=== PATIENT | female | born 1990 | race Caucasian/White ===

== ENCOUNTER → 2020-11-07 14:52 | Observation (INO) | END | disposition home or self-care (01) | LOC: 1NENULAB | PROVIDERS: ADMIT Registered Nurse; ATTEND Registered Nurse ==

== ENCOUNTER 2021-02-14 05:45 | Inpatient (IN) ==
[2021-02-14] MEDS ORDERED: Famotidine 20 MG/2 ML VIAL IVP PRN (05:59)
[2021-02-14] MEDS ORDERED: Naloxone 0.4 MG/ML INJ IVP PRN (05:59)
[2021-02-14] MEDS ORDERED: Metoclopramide 10 MG/2 ML VIAL IVP PRN ×2 (05:59→12:04)
[2021-02-14] MEDS ORDERED: Ringers Solution, Lactated 1,000 ML IVC SCH (06:00)
[2021-02-14 06:36] LABS: Basophils % 0.2 %; Eosinophils # 0.2 K/mcL (0.0-0.6); Eosinophils % 1.6 %; Hematocrit 36.2 % (35.3-44.9); Hemoglobin 11.3 g/dL (11.5-15.4); Immature Granulocytes % 1.4 % (0-4); Lymphocytes % 21.5 %; Mean Corpuscular HGB Conc 31.2 g/dL (31.6-35.5); Mean Corpuscular Hemoglobin 25.3 pg (28.0-33.3); Mean Corpuscular Volume 81.2 fL (83.0-100.0); Mean Platelet Volume 10.2 fL (9.4-12.4); Monocytes # 0.9 K/mcL (0.0-1.3); Monocytes % 9.2 %; Neutrophils # 6.3 K/mcL (1.6-8.9); Platelet Count 194 K/mcL (140-400); Red Blood Count 4.46 M/mcL (3.82-4.97); Red Cell Distribution Width 17.4 % (11.5-14.5); Segmented Neutrophils % 66.1 %; White Blood Count 9.5 K/mcL (4.3-11.1)
[2021-02-14] MEDS ORDERED: CeFAZolin 2,000MG/50ML DUPLEX 2,000 MG/50 ML BAG IVPB ONE (07:00)
[2021-02-14] MEDS ORDERED: EPHEDrine 50 MG/ML VIAL ONE (07:12)
[2021-02-14] MEDS ORDERED: *HR* Morphine Sulfate/PF 10 MG/10 ML AMPUL ONE (07:12)
[2021-02-14] MEDS ORDERED: *HR* FentaNYL (PF) 100 MCG/2 ML VIAL ONE (07:12)
[2021-02-14] MEDS ORDERED: *HR* Phenylephrine 10 MG/ML VIAL ONE (07:13)
[2021-02-14] MEDS ORDERED: Acetaminophen IV 1,000 MG/100 ML BAG IVPB ONE (07:13)
[2021-02-14] MEDS ORDERED: Ondansetron 4 MG/2 ML VIAL ONE (07:13)
[2021-02-14] MEDS ORDERED: Oxytocin 20 units/ LR 1000 mL 20 UNIT/1,000 ML BAG IVC ONE (07:24)
[2021-02-14] MEDS ORDERED: Promethazine 6.25 MG in Water for inj. (sterile) 20 ML IVPB PRN (07:41)
[2021-02-14] MEDS ORDERED: *HR* HYDROmorphone PF 0.5 MG/0.5 ML SYRINGE IVP PRN (07:41)
[2021-02-14] MEDS ORDERED: Ondansetron 4 MG/2 ML VIAL IVP PRN ×2 (07:41→12:04)
[2021-02-14] MEDS ORDERED: *HR* FentaNYL (PF) 100 MCG/2 ML VIAL IVP PRN (07:46)
[2021-02-14 11:15] LABS: Amphetamine Screen,Urine Negative ng/mL (Cutoff=1000); Barbiturate Screen,Urine Negative ng/mL (Cutoff=200); Benzodiazepines Screen,Urine Negative ng/mL (Cutoff=200); Cannabinoid Screen,Urine Negative ng/mL (Cutoff = 50); Cocaine Screen,Urine Negative ng/mL (Cutoff= 300); Opiate Screen,Urine Negative ng/mL (Cutoff=300); Phencyclidine Screen,Urine Negative ng/mL (Cutoff=25)
[2021-02-14] MEDS ORDERED: Prenatal Vit/FA 1 EACH TABLET PO SCH (12:04)
[2021-02-14] MEDS ORDERED: Oxytocin 20 units/ LR 1000 mL 20 UNIT/1,000 ML BAG IVC SCH (12:04)
[2021-02-14] MEDS ORDERED: Simethicone 80 MG TAB.CHEW PO PRN (12:04)
[2021-02-14] MEDS: Ibuprofen 600 MG TABLET PO SCH ×2 (15:34→20:26)
[2021-02-14] MEDS ORDERED: ceFAZolin 2,000 MG in Water for inj. (sterile) 10 ML IVP SCH (16:00)
[2021-02-14] MEDS: Acetaminophen 325 MG TABLET PO SCH (20:26)
[2021-02-14] MEDS: ceFAZolin 2,000 MG in 0.9 % Sodium Chloride 100 ML IVP SCH (23:32)
[2021-02-15] MEDS: Acetaminophen 325 MG TABLET PO SCH (04:24)
[2021-02-15] MEDS: Ibuprofen 600 MG TABLET PO SCH (04:24)
[2021-02-15] MEDS: *HR* OxyCODONE Immed Rel 5 MG TABLET PO PRN ×2 (05:10→11:02)
[2021-02-15] MEDS: ceFAZolin 2,000 MG in 0.9 % Sodium Chloride 100 ML IVP SCH (08:05)
[2021-02-15 12:05] VITALS: BP 115/74; PULSE 105; TEMP 98.7; O2SAT 98
== END 2021-02-15 13:40 | disposition home or self-care (01) | DRG 788 ==
LOC: 1NENULAB 05:54 → 1NENUOBS 11:14
PROVIDERS: ADMIT Obstetrics & Gynecology; ATTEND Obstetrics & Gynecology